=== PATIENT | female | born 1950 | race Two or more races ===

== ENCOUNTER → 2017-06-26 | Outpatient (CLI) | payer MEDICARE, OTHER ==
[~2017-06-26] MED LIST: ALBU18HF INH; FLUT12AE INH
== END | disposition home or self-care (01) ==
LOC: RAD 10:21
PROVIDERS: ATTEND Physician Assistant
DX: S86.011A Strain of right Achilles tendon, initial encounter (principal); S86.012A Strain of left Achilles tendon, initial encounter; M66.372 Spontaneous rupture of flexor tendons, left ankle and foot; X58.XXXA Exposure to other specified factors, initial encounter; Y93.89 Activity, other specified; Y92.89 Other specified places as the place of occurrence of the external cause; Y99.8 Other external cause status; M25.471 Effusion, right ankle

== ENCOUNTER 2017-07-06 17:34 | Inpatient (IN) | payer MEDICARE, OTHER ==
[~2017-07-06] VITALS: Ht 149.9 cm; Wt 43.0 kg
[2017-07-06] MEDS ORDERED: SYMBICORT (17:52)
[2017-07-06] MEDS ORDERED: OXYC5CAP2 PO (17:52)
[2017-07-06] MEDS ORDERED: SPIRIVA (17:52)
[2017-07-06] MEDS ORDERED: HYDR50CA PO (17:52)
[2017-07-06] MEDS ORDERED: OXYcodone/APAP 5/325MG TABLET PO ONE (18:30)
[2017-07-06] MEDS ORDERED: OXYcodone/APAP 5/325MG TABLET ONE (18:46)
[2017-07-06] MEDS ORDERED: TEMAZEPAM 15 MG CAPSULE PO PRN (20:30)
[2017-07-06] MEDS ORDERED: ONDANSETRON ODT 4 MG PO PRN (20:30)
[2017-07-06] MEDS ORDERED: ENALAPRILAT 1.25 MG/ML, 2ML IVPush PRN (20:30)
[2017-07-07 03:02] VITALS: BP 116/87
[2017-07-07 04:34] VITALS: BP 132/74
[2017-07-07 07:05] VITALS: BP 114/69
[2017-07-07] MEDS: OXYcodone/APAP 5/325MG TABLET PO PRN ×2 (09:28→17:12)
[2017-07-07] MEDS: ENOXAPARIN 40 MG/0.4 ML SQ SCH (09:30)
[2017-07-07] MEDS: SENNA/DOCUSATE TABLET PO SCH (09:30)
[2017-07-07 09:59] LABS: HEMATOCRIT 38.5 % (34.6-47.8); HEMOGLOBIN 12.8 g/dL (11.7-16.4); WHITE BLOOD COUNT 11.7 x10^3/uL (3.4-10)
[2017-07-07 10:12] LABS: ASPARTATE AMINO TRANSFERASE 14 U/L (15-37); BLOOD UREA NITROGEN 11 mg/dL (7-18)
[2017-07-07 13:29] VITALS: BP 93/57
[2017-07-07 20:03] VITALS: BP 102/62
[2017-07-08 00:57] VITALS: BP 95/54
[2017-07-08] MEDS: OXYcodone/APAP 5/325MG TABLET PO PRN ×4 (00:59→23:21)
[2017-07-08 07:48] VITALS: BP 126/71
[2017-07-08] MEDS: SENNA/DOCUSATE TABLET PO SCH (08:39)
[2017-07-08] MEDS: ENOXAPARIN 40 MG/0.4 ML SQ SCH (08:40)
[2017-07-08 08:41] LABS: HEMATOCRIT 37.3 % (34.6-47.8); HEMOGLOBIN 12.3 g/dL (11.7-16.4); WHITE BLOOD COUNT 9.2 x10^3/uL (3.4-10)
[2017-07-08 08:51] LABS: BLOOD UREA NITROGEN 17 mg/dL (7-18)
[2017-07-08 13:37] VITALS: BP 108/66
[2017-07-08 18:59] VITALS: BP 112/71
[2017-07-09 02:59] VITALS: BP 144/80
[2017-07-09] MEDS: SENNA/DOCUSATE TABLET PO SCH (09:00)
[2017-07-09 09:11] VITALS: BP 149/87
[2017-07-09] MEDS: OXYcodone/APAP 5/325MG TABLET PO PRN ×2 (11:09→23:09)
[2017-07-09] MEDS: ENOXAPARIN 40 MG/0.4 ML SQ SCH (11:10)
[2017-07-09 14:00] VITALS: BP 120/67
[2017-07-09 19:42] VITALS: BP 131/82
[2017-07-10 02:33] VITALS: BP 128/81
[2017-07-10] MEDS ORDERED: BISACODYL 10 MG SUPP PR PRN (05:00)
[2017-07-10] MEDS ORDERED: POLYETHYLENE GLYCOL 17 GM PACKET PO PRN (05:00)
[2017-07-10] MEDS ORDERED: MAGNESIUM HYDROXIDE 8%, 30ML UDC PO PRN (05:00)
[2017-07-10 07:00] VITALS: BP 124/80
[2017-07-10] MEDS: SENNA/DOCUSATE TABLET PO SCH (09:00)
[2017-07-10] MEDS: OXYcodone/APAP 5/325MG TABLET PO PRN (09:58)
[2017-07-10] MEDS: ENOXAPARIN 40 MG/0.4 ML SQ SCH (09:58)
[2017-07-10] MEDS ORDERED: ONDA4TAB13 PO (10:03)
[2017-07-10] MEDS ORDERED: ENOX40SY4 SQ (10:03)
[2017-07-10] MEDS ORDERED: BISA10SU65 PR (10:03)
[2017-07-10] MEDS ORDERED: MAGN400O7 PO (10:03)
[2017-07-10] MEDS ORDERED: TEMA15CA6 PO (10:03)
[2017-07-10] MEDS ORDERED: OXYC1TAB7 PO (10:03)
[2017-07-10] MEDS ORDERED: POLY17PO5 PO (10:03)
[2017-07-10] MEDS ORDERED: SENN1TAB7 PO (10:03)
[2017-07-10 14:03] VITALS: BP 112/67
== END 2017-07-10 16:46 | DRG 559 ==
LOC: ED 18:09 → EDIP 18:14 → 3NE 07-07 00:25
PROVIDERS: ATTEND Internal Medicine
DX: T84.84XA Pain due to internal orthopedic prosthetic devices, implants and grafts, initial encounter (principal); E43 Unspecified severe protein-calorie malnutrition; S86.019A Strain of unspecified Achilles tendon, initial encounter; J44.9 Chronic obstructive pulmonary disease, unspecified; D72.828 Other elevated white blood cell count; Z88.8 Allergy status to other drugs, medicaments and biological substances; Z80.0 Family history of malignant neoplasm of digestive organs; Z80.49 Family history of malignant neoplasm of other genital organs; Z87.891 Personal history of nicotine dependence
CPT/HCPCS: 36415; 80048; 80053; 85025; J1650

== ENCOUNTER 2020-05-07 11:31 | Outpatient (CLI) | payer MEDICARE, OTHER ==
[~2020-05-07 11:31] MED LIST changes: +BISA10SU65 PR; +ENOX40SY4 SQ; +HYDR50CA PO; +MAGN400O7 PO; +ONDA4TAB13 PO; +OXYC1TAB7 PO; +OXYC5CAP2 PO; +POLY17PO5 PO; +SENN-177 PO; +SPIRIVA; +SYMBICORT; +TEMA15CA6 PO
== END 2020-05-07 23:59 | disposition home or self-care (01) ==
LOC: CFH 11:31
PROVIDERS: ATTEND Family Medicine
DX: Z12.31 Encounter for screening mammogram for malignant neoplasm of breast (principal); Z12.2 Encounter for screening for malignant neoplasm of respiratory organs; R91.1 Solitary pulmonary nodule; J43.9 Emphysema, unspecified; Q25.46 Tortuous aortic arch; Z87.891 Personal history of nicotine dependence
CPT/HCPCS: 77067; G0297

== ENCOUNTER 2021-05-11 10:29 | Outpatient (CLI) | payer MEDICARE, OTHER | END 2021-05-11 23:59 | disposition home or self-care (01) | LOC: CFH 10:29 | PROVIDERS: ATTEND Nurse Practitioner Family | DX: Z12.31 Encounter for screening mammogram for malignant neoplasm of breast (principal); Z12.39 Encounter for other screening for malignant neoplasm of breast; Z12.2 Encounter for screening for malignant neoplasm of respiratory organs; J43.9 Emphysema, unspecified; Z87.891 Personal history of nicotine dependence; I25.10 Atherosclerotic heart disease of native coronary artery without angina pectoris; I70.0 Atherosclerosis of aorta; I77.810 Thoracic aortic ectasia | CPT/HCPCS: 71271; 76641; 77063; 77067 ==